=== PATIENT | male | born 1990 | race Two or more races ===

== ENCOUNTER 2017-02-12 16:26 | Emergency (ER) | payer OTHER ==
[~2017-02-12] VITALS: Ht 172.7 cm; Wt 56.8 kg
[2017-02-12 16:30] VITALS: BP 138/85; PULSE 93; RESP 15; O2SAT 99
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
[2017-02-12] MEDS ORDERED: CLON0.2T PO (17:39)
[2017-02-12] MEDS ORDERED: ONDA4TAB6 PO (17:39)
[2017-02-12 17:41] VITALS: BP 109/65; PULSE 75; RESP 20; O2SAT 99
[2017-02-12 17:58] VITALS: BP 117/76; PULSE 63; RESP 20; O2SAT 95
== END 2017-02-12 17:59 | disposition home or self-care (01) ==
LOC: SED 16:26
DX: F11.23 Opioid dependence with withdrawal (principal); G89.29 Other chronic pain; F41.9 Anxiety disorder, unspecified